=== PATIENT | female | born 1985 | race Two or more races ===

== ENCOUNTER 2018-06-27 18:12 | Inpatient (IN) | payer BC ==
[~2018-06-27] VITALS: Ht 152.4 cm; Wt 90.0 kg
[2018-07-06] MEDS ORDERED: OXYTOCIN 30U/ 0.9% NaCL 500ML 500 ML IV ONE (21:46)
[2018-07-06] MEDS ORDERED: OXYTOCIN 30U/ 0.9% NaCL 500ML 500 ML IV SCH (21:46)
[2018-07-06] MEDS ORDERED: OXYcodone/APAP 5/325MG TABLET PO PRN ×2 (22:00)
[2018-07-06] MEDS ORDERED: MISOPROSTOL 200 MCG TABLET PR PRN (22:00)
[2018-07-06] MEDS ORDERED: FENTANYL PF 100 MCG/2ML IV PRN (22:00)
[2018-07-06] MEDS ORDERED: ACETAMINOPHEN 325 MG TABLET PO PRN (22:00)
[2018-07-06] MEDS ORDERED: METOCLOPRAMIDE 5 MG/ML, 2ML IVPush PRN (22:00)
[2018-07-06] MEDS ORDERED: ONDANSETRON 2MG/ML, 2ML IVPush PRN (22:00)
[2018-07-06] MEDS ORDERED: CARBOPROST TROMETHAMINE 250 MCG/ML, 1ML IM PRN (22:00)
[2018-07-06] MEDS ORDERED: SODIUM CITRATE/CITRIC ACID 30 ML UDC PO PRN (22:00)
[2018-07-06] MEDS ORDERED: ALUMINUM/MAG/SIMETHICONE 30 ML UDC PO PRN (22:00)
[2018-07-06] MEDS ORDERED: OXYTOCIN 10 UNITS/ML, 1ML IM PRN (22:00)
[2018-07-06] MEDS ORDERED: METHYLERGONOVINE 0.2 MG/ML IM PRN (22:00)
[2018-07-06] MEDS ORDERED: CALCIUM CARBONATE 500 MG TAB.CHEW PO PRN (22:00)
[2018-07-06] MEDS ORDERED: FENTANYL PF 100 MCG/2ML IVPush PRN (22:00)
[2018-07-06] MEDS ORDERED: IBUPROFEN 600 MG TABLET PO PRN (22:00)
[2018-07-06] MEDS ORDERED: MISOPROSTOL 25 MCG TABLET VG PRN (22:00)
[2018-07-06] MEDS: LACTATED RINGERS 1,000 ML IV SCH (22:10)
[2018-07-06 22:16] VITALS: BP 107/65
[2018-07-06] MEDS ORDERED: MISOPROSTOL 25 MCG TABLET ONE (22:28)
[2018-07-06] MEDS ORDERED: PLEASE ENTER HEIGHT AND WEIGHT MC SCH (22:30)
[2018-07-06] MEDS ORDERED: NEWBORN KIT ONE (22:31)
[2018-07-06 22:35] LABS: BASOPHILS # (AUTO) 0.02 x10^3/uL (0-0.1); BASOPHILS % (AUTO) 0 % (0-1); EOSINOPHILS # (AUTO) 0.06 x10^3/uL (0-0.4); EOSINOPHILS % (AUTO) 1 % (1-7); LYMPHOCYTES # (AUTO) 2.58 x10^3/uL (1-3.4); LYMPHOCYTES % (AUTO) 30 % (22-44); MD NO; MEAN CORPUSCULAR HEMOGLOBIN 29.2 pg (27.0-34.8); MEAN CORPUSCULAR VOLUME 85.8 fL (80-100); MEAN PLATELET VOLUME 8.3 fL (7.4-10.4); MONOCYTES # (AUTO) 0.59 x10^3/uL (0.2-0.8); MONOCYTES % (AUTO) 7 % (2-9); NEUTROPHILS # (AUTO) 5.29 x10^3/uL (1.8-6.8); NEUTROPHILS % (AUTO) 62 % (42-75); PLATELET COUNT 235 x10^3/uL (130-400); RED BLOOD COUNT 3.82 x10^6/uL (3.82-5.3); RED CELL DISTRIBUTION WIDTH 16.1 % (9.6-15.2)
[2018-07-06 22:59] LABS: CULTURE INDICATED? NO; MICROSCOPIC NOT IND
[2018-07-07] MEDS: LACTATED RINGERS 1,000 ML IV SCH ×3 (05:30→21:29)
[2018-07-07] MEDS ORDERED: FENTANYL PF 500 MCG, BUPIVACAINE/PF 0.5%, 30ML 62.5 ML in SODIUM CHLORIDE 0.9% 177.5 ML EPIDCONT SCH (08:06)
[2018-07-07] MEDS ORDERED: FENTANYL PF 100 MCG/2ML ONE (09:49)
[2018-07-07] MEDS ORDERED: PNV11TAB PO (14:31)
[2018-07-07] MEDS ORDERED: OXYTOCIN 30U/ 0.9% NaCL 500ML 500 ML ONE (19:03)
[2018-07-08] MEDS: D5%-LACTATED RINGERS 1,000 ML IV SCH ×3 (03:13→11:55)
[2018-07-08] MEDS ORDERED: FENTANYL PF 100 MCG/2ML ONE ×3 (07:35→21:32)
[2018-07-08] MEDS ORDERED: LACTATED RINGERS 1,000 ML IVBOLUS ONE (08:47)
[2018-07-08] MEDS ORDERED: METOCLOPRAMIDE 5 MG/ML, 2ML ONE (08:56)
[2018-07-08] MEDS ORDERED: OXYTOCIN 30U/ 0.9% NaCL 500ML 500 ML ONE (08:56)
[2018-07-08] MEDS ORDERED: SODIUM CITRATE/CITRIC ACID 30 ML UDC ONE (08:56)
[2018-07-08] MEDS ORDERED: LACTATED RINGERS 1,000 ML IV SCH ×3 (10:18→23:53)
[2018-07-08] MEDS ORDERED: FENTANYL/BUPIV./NS/PF 250 ML EPIDCONT SCH ×2 (10:18→15:32)
[2018-07-08] MEDS ORDERED: LACTATED RINGERS 1,000 ML IVBOLUS PRN ×2 (10:30→16:00)
[2018-07-08] MEDS ORDERED: BUPIVACAINE 0.25% ONE (10:43)
[2018-07-08] MEDS ORDERED: LIDOCAINE/PF 1.5%-EPI 1:200K, 30ML ONE (10:43)
[2018-07-08] MEDS: EPHEDRINE 50 MG/ML, 1ML IVPush PRN ×3 (11:20→12:10)
[2018-07-08] MEDS: LACTATED RINGERS 1,000 ML IV SCH ×2 (11:56→23:53)
[2018-07-08] MEDS ORDERED: AZITHROMYCIN 500 MG in SODIUM CHLORIDE 0.9% 250 ML IV STA (21:35)
[2018-07-08] MEDS ORDERED: morphine SULFATE/PF 0.5 MG/ML, 10ML ONE (22:38)
[2018-07-08] MEDS ORDERED: PHENYLEPHRINE 10 MG/ML ONE (22:59)
[2018-07-08] MEDS ORDERED: BUPIVACAINE/PF 0.25% ONE (22:59)
[2018-07-08] MEDS ORDERED: LIDOCAINE-MPF 2% ,5ML ONE (22:59)
[2018-07-08] MEDS ORDERED: EPHEDRINE 50 MG/ML, 1ML ONE (22:59)
[2018-07-08] MEDS ORDERED: OXYTOCIN 10 UNITS/ML, 1ML ONE (22:59)
[2018-07-08] MEDS ORDERED: CEFAZOLIN 1,000 MG ONE (22:59)
[2018-07-08] MEDS ORDERED: PROPOFOL 10 MG/ML, 20ML ONE (23:00)
[2018-07-08] MEDS ORDERED: ROPIvacaine/PF 0.2%, 20 ML ONE (23:00)
[2018-07-08] MEDS ORDERED: HYDROmorphone 1 MG/ML, 1ML IV PRN (23:30)
[2018-07-08] MEDS ORDERED: OXYcodone 5 MG/5 ML ORAL.SOL UDC PO PRN (23:30)
[2018-07-08] MEDS ORDERED: FENTANYL PF 100 MCG/2ML IV PRN (23:30)
[2018-07-08] MEDS ORDERED: ONDANSETRON 2MG/ML, 2ML IV PRN (23:30)
[2018-07-08] MEDS: OXYTOCIN 30U/ 0.9% NaCL 500ML 500 ML IV SCH (23:53)
[2018-07-09] MEDS ORDERED: KETOROLAC 30 MG/1 ML IVPush PRN
[2018-07-09] MEDS ORDERED: DOCUSATE 100 MG CAPSULE PO PRN
[2018-07-09] MEDS ORDERED: morphine SULFATE 10 MG/ML, 1ML IVPush PRN ×2
[2018-07-09] MEDS ORDERED: ONDANSETRON 2MG/ML, 2ML IVPush PRN
[2018-07-09] MEDS ORDERED: HYDROmorphone/PF 10 MG/ML, 1ML IVPush PRN
[2018-07-09] MEDS ORDERED: SIMETHICONE 80 MG CHEW TAB PO PRN
[2018-07-09] MEDS ORDERED: DIPHENHYDRAMINE 50 MG/ML, 1ML IVPush PRN
[2018-07-09] MEDS ORDERED: NALOXONE 0.4 MG/ML, 1ML IVPush PRN
[2018-07-09] MEDS ORDERED: ONDANSETRON 2MG/ML, 2ML IV PRN
[2018-07-09] MEDS ORDERED: LACTATED RINGERS 1,000 ML IV SCH
[2018-07-09] MEDS ORDERED: OXYcodone IR 5MG TABLET PO PRN ×2
[2018-07-09] MEDS ORDERED: OXYcodone/APAP 5/325MG TABLET PO PRN ×2
[2018-07-09] MEDS ORDERED: BISACODYL 10 MG SUPP PR PRN
[2018-07-09] MEDS ORDERED: MISOPROSTOL 200 MCG TABLET PR PRN
[2018-07-09] MEDS ORDERED: CALCIUM CARBONATE 500 MG TAB.CHEW PO PRN
[2018-07-09] MEDS ORDERED: IBUPROFEN 600 MG TABLET PO SCH
[2018-07-09] MEDS ORDERED: OXYcodone 5 MG/5 ML ORAL.SOL UDC ONE (00:34)
[2018-07-09] MEDS ORDERED: KETOROLAC 30 MG/1 ML ONE (00:34)
[2018-07-09] MEDS: KETOROLAC 30 MG/1 ML IV SCH ×4 (00:41→17:48)
[2018-07-09 01:00] VITALS: BP 99/62
[2018-07-09 04:20] VITALS: BP 94/58
[2018-07-09 06:26] LABS: BASOPHILS # (AUTO) 0.07 x10^3/uL (0-0.1); BASOPHILS % (AUTO) 0 % (0-1); EOSINOPHILS % (AUTO) 0 % (1-7); LYMPHOCYTES # (AUTO) 2.78 x10^3/uL (1-3.4); LYMPHOCYTES % (AUTO) 16 % (22-44); MD NO; MEAN CORPUSCULAR HEMOGLOBIN 29.5 pg (27.0-34.8); MEAN CORPUSCULAR HGB CONC 34.2 g/dL (32.4-35.8); MEAN CORPUSCULAR VOLUME 86.2 fL (80-100); MEAN PLATELET VOLUME 7.7 fL (7.4-10.4); MONOCYTES # (AUTO) 1.15 x10^3/uL (0.2-0.8); MONOCYTES % (AUTO) 7 % (2-9); NEUTROPHILS # (AUTO) 12.99 x10^3/uL (1.8-6.8); NEUTROPHILS % (AUTO) 77 % (42-75); PLATELET COUNT 190 x10^3/uL (130-400); RED BLOOD COUNT 3.02 x10^6/uL (3.82-5.3); RED CELL DISTRIBUTION WIDTH 15.9 % (9.6-15.2)
[2018-07-09] MEDS ORDERED: ACETAMINOPHEN 325 MG TABLET PO SCH ×4 (06:30→12:30)
[2018-07-09 08:15] VITALS: BP 92/59
[2018-07-09] MEDS: ACETAMINOPHEN 325 MG TABLET PO SCH ×3 (08:25→20:40)
[2018-07-09] MEDS: PRENATAL VIT/IRON/FA 1 EACH TABLET PO SCH (08:25)
[2018-07-09] MEDS: OXYTOCIN 30U/ 0.9% NaCL 500ML 500 ML IV SCH ×2 (09:53→19:53)
[2018-07-09] MEDS: LACTATED RINGERS 1,000 ML IV SCH ×2 (09:53→19:53)
[2018-07-09 12:21] VITALS: BP 88/54
[2018-07-09 16:30] VITALS: BP 91/65
[2018-07-09 20:00] VITALS: BP 95/54
[2018-07-09] MEDS ORDERED: MEASLES,MUMPS&RUBELLA VACC/PF 0.5 ML SQ-VACC ONE (21:00)
[2018-07-10] MEDS: ACETAMINOPHEN 325 MG TABLET PO SCH ×5 (02:42→23:55)
[2018-07-10] MEDS: IBUPROFEN 600 MG TABLET PO SCH ×4 (05:40→23:56)
[2018-07-10] MEDS: OXYTOCIN 30U/ 0.9% NaCL 500ML 500 ML IV SCH ×2 (05:53→15:53)
[2018-07-10] MEDS: LACTATED RINGERS 1,000 ML IV SCH ×2 (05:53→15:53)
[2018-07-10 08:10] VITALS: BP 94/53
[2018-07-10] MEDS: PRENATAL VIT/IRON/FA 1 EACH TABLET PO SCH (08:24)
[2018-07-10] MEDS ORDERED: IBUPROFEN 600 MG TABLET PO SCH (12:30)
[2018-07-10 20:00] VITALS: BP 101/67
[2018-07-11] MEDS: OXYTOCIN 30U/ 0.9% NaCL 500ML 500 ML IV SCH (01:53)
[2018-07-11] MEDS: LACTATED RINGERS 1,000 ML IV SCH (01:53)
[2018-07-11] MEDS: IBUPROFEN 600 MG TABLET PO SCH (06:36)
[2018-07-11] MEDS: ACETAMINOPHEN 325 MG TABLET PO SCH (06:37)
[2018-07-11 08:20] VITALS: BP 99/65
[2018-07-11] MEDS ORDERED: IBUP-1222 PO (08:49)
[2018-07-11] MEDS ORDERED: OXYC-302 PO (08:49)
== END 2018-07-11 10:33 | disposition home or self-care (01) | DRG 788 ==
LOC: LDIP 07-06 21:26 → 2NW 07-09 01:00
PROVIDERS: ADMIT Obstetrics & Gynecology; ATTEND Obstetrics & Gynecology
PROC: 10D00Z1 Extraction of Products of Conception, Low, Open Approach (ICD-10-PCS; principal; 2018-07-08)
PROC: 0U7C7ZZ Dilation of Cervix, Via Natural or Artificial Opening (ICD-10-PCS; 2018-07-08)
PROC: 3E033VJ Introduction of Other Hormone into Peripheral Vein, Percutaneous Approach (ICD-10-PCS; 2018-07-08)
DX: O48.0 Post-term pregnancy (principal); D64.9 Anemia, unspecified; O99.02 Anemia complicating childbirth; O61.9 Failed induction of labor, unspecified; Z37.0 Single live birth; Z3A.41 41 weeks gestation of pregnancy
CPT/HCPCS: 36415; J7121; 81003; 85025; 86850; 86900; G0378; J0456; J0690; J1885; J2274; J2704; J2795; J3010; J3490; J2370; J2590; J2765; J7050; J7120

== ENCOUNTER → 2021-04-07 | Outpatient (CLI) | payer OTHER ==
[~2021-04-07] MED LIST: IBUP-1222 PO; OXYC1TAB14 PO; PNV11TAB PO
== END | disposition home or self-care (01) ==
LOC: STAR 15:49
PROVIDERS: ATTEND Anesthesiology
DX: Z20.822 Contact with and (suspected) exposure to COVID-19 (principal)
CPT/HCPCS: U0003; U0005

== ENCOUNTER 2021-04-11 10:39 | Inpatient (IN) | payer OTHER ==
[~2021-04-11] VITALS: Ht 152.4 cm; Wt 89.1 kg
[2021-04-11] MEDS ORDERED: SODIUM CITRATE/CITRIC ACID 30 ML UDC PO ONE (11:00)
[2021-04-11] MEDS ORDERED: METOCLOPRAMIDE 5 MG/ML, 2ML IV ONE (11:00)
[2021-04-11] MEDS: PLEASE ENTER HEIGHT AND WEIGHT MC SCH ×2 (11:00→19:00)
[2021-04-11] MEDS: LACTATED RINGERS 1,000 ML IV SCH ×6 (11:00→22:43)
[2021-04-11] MEDS ORDERED: LACTATED RINGERS 1,000 ML IVBOLUS ONE (11:00)
[2021-04-11 11:15] VITALS: BP 89/52
[2021-04-11 11:30] LABS: BASOPHILS % (AUTO) 0 % (0-1); EOSINOPHILS % (AUTO) 0 % (1-7); LYMPHOCYTES % (AUTO) 30 % (22-44); MEAN CORPUSCULAR HEMOGLOBIN 28.9 pg (27.0-34.8); MEAN CORPUSCULAR HGB CONC 34.2 g/dL (32.4-35.8); MEAN PLATELET VOLUME 7.7 fL (7.4-10.4); MONOCYTES % (AUTO) 6 % (2-9); NEUTROPHILS % (AUTO) 64 % (42-75); PLATELET COUNT 198 x10^3/uL (130-400); RED BLOOD COUNT 3.98 x10^6/uL (3.82-5.3); RED CELL DISTRIBUTION WIDTH 16.5 % (9.6-15.2)
[2021-04-11] MEDS ORDERED: METOCLOPRAMIDE 5 MG/ML, 2ML ONE (12:13)
[2021-04-11] MEDS ORDERED: NEWBORN KIT ONE (12:13)
[2021-04-11] MEDS ORDERED: SODIUM CITRATE/CITRIC ACID 15 ML UDC ONE (12:13)
[2021-04-11] MEDS ORDERED: OXYTOCIN 30U/ 0.9% NaCL 500ML 500 ML ONE (12:17)
[2021-04-11] MEDS ORDERED: BUPIVACAINE 0.25% ONE (12:28)
[2021-04-11] MEDS ORDERED: GLYCERIN ADULT SUPP PR PRN (12:30)
[2021-04-11] MEDS ORDERED: CALCIUM CARBONATE 500 MG TAB.CHEW PO PRN (12:30)
[2021-04-11] MEDS ORDERED: METHYLERGONOVINE 0.2 MG/ML IM PRN (12:30)
[2021-04-11] MEDS ORDERED: CARBOPROST TROMETHAMINE 250 MCG/ML, 1ML IM PRN (12:30)
[2021-04-11] MEDS: OXYTOCIN 30U/ 0.9% NaCL 500ML 500 ML IV SCH ×2 (12:30→22:43)
[2021-04-11] MEDS ORDERED: BISACODYL 10 MG SUPP PR PRN (12:30)
[2021-04-11] MEDS ORDERED: ACETAMINOPHEN 325 MG TABLET PO PRN ×2 (12:30)
[2021-04-11] MEDS ORDERED: DIPH,PERTUSS(ACELL),TET VAC/PF NC IM-VACC PRN (12:30)
[2021-04-11] MEDS ORDERED: SIMETHICONE 80 MG CHEW TAB PO PRN (12:30)
[2021-04-11] MEDS ORDERED: MISOPROSTOL 200 MCG TABLET PR PRN (12:30)
[2021-04-11] MEDS ORDERED: MEASLES,MUMPS&RUBELLA VACC/PF 0.5 ML SQ-VACC PRN (12:30)
[2021-04-11] MEDS ORDERED: OXYcodone/APAP 5/325MG TABLET PO PRN ×2 (12:30)
[2021-04-11] MEDS ORDERED: IBUPROFEN 600 MG TABLET PO PRN (12:30)
[2021-04-11] MEDS ORDERED: ONDANSETRON 2MG/ML, 2ML IV PRN (12:30)
[2021-04-11] MEDS ORDERED: METOCLOPRAMIDE 5 MG/ML, 2ML IV PRN (12:30)
[2021-04-11] MEDS ORDERED: FENTANYL PF 100 MCG/2ML ONE (12:31)
[2021-04-11] MEDS ORDERED: CEFAZOLIN 1,000 MG ONE ×2 (12:54)
[2021-04-11] MEDS ORDERED: EPHEDRINE 50 MG/ML, 1ML ONE (12:54)
[2021-04-11] MEDS ORDERED: OXYTOCIN 10 UNITS/ML, 1ML ONE ×2 (12:54)
[2021-04-11] MEDS ORDERED: ONDANSETRON 2MG/ML, 2ML ONE (12:54)
[2021-04-11] MEDS ORDERED: PHENYLEPHRINE 10 MG/ML ONE (12:54)
[2021-04-11] MEDS ORDERED: HYDROmorphone 1 MG/ML, 1ML INJ ONE (13:13)
[2021-04-11] MEDS: KETOROLAC 30 MG/1 ML IV SCH ×2 (16:28→22:45)
[2021-04-11 16:30] VITALS: BP 106/62
[2021-04-11 21:09] LABS: BASOPHILS % (AUTO) 1 % (0-1); EOSINOPHILS % (AUTO) 0 % (1-7); LYMPHOCYTES % (AUTO) 24 % (22-44); MEAN CORPUSCULAR HEMOGLOBIN 28.6 pg (27.0-34.8); MEAN CORPUSCULAR HGB CONC 33.6 g/dL (32.4-35.8); MEAN PLATELET VOLUME 7.8 fL (7.4-10.4); MONOCYTES % (AUTO) 6 % (2-9); NEUTROPHILS % (AUTO) 69 % (42-75); PLATELET COUNT 187 x10^3/uL (130-400); RED BLOOD COUNT 3.79 x10^6/uL (3.82-5.3); RED CELL DISTRIBUTION WIDTH 16.2 % (9.6-15.2)
[2021-04-11 21:16] VITALS: BP 93/55
[2021-04-11] MEDS: DOCUSATE 100 MG CAPSULE PO PRN (22:45)
[2021-04-12 00:16] VITALS: BP 89/49
[2021-04-12] MEDS: LACTATED RINGERS 1,000 ML IV SCH ×2 (02:40→04:30)
[2021-04-12] MEDS: PLEASE ENTER HEIGHT AND WEIGHT MC SCH (02:40)
[2021-04-12 04:00] VITALS: BP 88/49
[2021-04-12] MEDS: KETOROLAC 30 MG/1 ML IV SCH ×4 (04:33→22:44)
[2021-04-12 07:45] VITALS: BP 88/54
[2021-04-12] MEDS: PRENATAL VIT/IRON/FA 1 EACH TABLET PO SCH (10:27)
[2021-04-12] MEDS: DOCUSATE 100 MG CAPSULE PO PRN ×2 (10:27→22:44)
[2021-04-12 14:30] VITALS: BP 92/61
[2021-04-12 20:30] VITALS: BP 89/56
[2021-04-13] MEDS: KETOROLAC 30 MG/1 ML IV SCH ×2 (04:39→10:27)
[2021-04-13 07:45] VITALS: BP 85/51
[2021-04-13] MEDS ORDERED: DOCU-131 PO (09:26)
[2021-04-13] MEDS ORDERED: IBUP-1222 PO (09:26)
[2021-04-13] MEDS ORDERED: OXYC1TAB14 PO (09:26)
[2021-04-13] MEDS: PRENATAL VIT/IRON/FA 1 EACH TABLET PO SCH (10:27)
== END 2021-04-13 11:40 | disposition home or self-care (01) | DRG 788 ==
LOC: LDIP 10:39 → 2NW 16:08
PROVIDERS: ADMIT Obstetrics & Gynecology; ATTEND Obstetrics & Gynecology
PROC: 10D00Z1 Extraction of Products of Conception, Low, Open Approach (ICD-10-PCS; principal; 2021-04-11)
PROC: 3E0234Z Introduction of Serum, Toxoid and Vaccine into Muscle, Percutaneous Approach (ICD-10-PCS; 2021-04-11)
DX: O99.02 Anemia complicating childbirth (principal); D50.9 Iron deficiency anemia, unspecified; E74.39 Other disorders of intestinal carbohydrate absorption; O34.211 Maternal care for low transverse scar from previous cesarean delivery; O75.89 Other specified complications of labor and delivery; Z37.0 Single live birth; Z3A.39 39 weeks gestation of pregnancy; Z23 Encounter for immunization
CPT/HCPCS: 36415; 85025; 86592; 86850; 86900; G0378; J0690; J1170; J1885; J2405; J3010; J2370; J2590; J2765